=== PATIENT | male | born 1985 | race Caucasian/White ===

== ENCOUNTER 2018-05-14 14:27 | Inpatient (IN) | payer OTHER ==
[2018-05-14 14:53] VITALS: BMI 28.8
--- NOTE | 2018-05-14 17:55 | HP ---
"CIWA Score Nausea/Vomitin-Mild Nausea/No Vomiting Muscle Tremors: 4-Moderate,w/Arms Extend Anxiety: 1-Mildly Anxious Agitation: 1-Slight > Activity Paroxysmal Sweats: No Perspiration Orientation: 1-Uncertain about Date Tacttile Disturbances: 0-None Auditory Disturbances: 0-None Visual Disturbances: 0-None Headache: 2-Mild CIWA-Ar Total Score: 10 - Admission Criteria OASAS Guidelines: Admission for Medically Managed Detox: Requires at least one of the followin. CIWA greater than 12 2. Seizures within the past 24 hours 3. Delirium tremens within the past 24 hours 4. Hallucinations within the past 24 hours 5. Acute intervention needed for co occurring medical disorder 6. Acute intervention needed for co occurring psychiatric disorder 7. Severe withdrawal that cannot be handled at a lower level of care (continued vomiting, continued diarrhea, abnormal vital signs) requiring intravenous medication and/or fluids 8. Admission [facility] Chief Complaint: Here for benzo withdrawal. Allergies/Adverse Reactions: Allergies Allergy/AdvReac Type Severity Reaction Status Date / Time No Known Allergies Allergy Verified 05/14/18 17:22 History of Present Illness: Benzo use began at age 19. Hx blackouts r/t use. Last blackout about 5 months ago. Was getting prescribed Xanax. [facility] was in long-term treatment until April. Relapsed w/ benzo's 3 weeks. Marijuana use began at age 16. Heroin use began at age 21. On a MMTP but continues to use illicit opiates IV. [facility] does not share needles or works. Currently on [facility] ([facility]) OTP - . [facility] current Methadone dose is 40 mg PO Daily. Signed consent for release of information from [facility] to [facility] noted and placed in chart. Hx overdose -3 weeks ago. Nicotine use began at age 18. Was prescribed dextroamp-amphetamine but [facility] was not taking. Longest length of sobriety 1-2 days once out of treatment. Denies significant PMH/PSH. Search Terms: Yonatan Candelariohope, 1985 Search Date: 05/14/2018 05:38:32 PM The Drug Utilization Report below displays all of the controlled substance prescriptions, if any, that your patient has filled in the last twelve months. The information displayed on this report is compiled from pharmacy submissions to the Department, and accurately reflects the information as submitted by the pharmacies. This report was requested by: Charlene Sands | Reference #: [id number] Others' Prescriptions Patient Name: Yonatan Welsh Date: 1985 Address: [id number] [facility] [place] [id number] Sex: Male Rx Written Rx Dispensed Drug Quantity Days Supply Prescriber Name 03/01/2018 03/01/2018 alprazolam 2 mg tablet 60 30 ValbrunMason MD 03/01/2018 03/01/2018 dextroamp-amphetamin 30 mg tab 60 30 Valbrun, Mason Youngblood MD 01/25/2018 01/30/2018 dextroamp-amphetamin 30 mg tab 60 30 Valbrun, Mason Youngblood MD 01/25/2018 01/30/2018 alprazolam 2 mg tablet 60 30 Valbrun, Mason Youngblood MD 12/31/2017 12/31/2017 alprazolam 2 mg tablet 60 30 ValbrunMason MD 12/31/2017 12/31/2017 dextroamp-amphetamin 30 mg tab 60 30 Valbrun, Mason Youngblood MD 11/30/2017 11/30/2017 dextroamp-amphetamin 30 mg tab 60 30 Valbrun, Mason Youngblood MD 10/26/2017 10/26/2017 alprazolam 2 mg tablet 60 30 Valbrun, Mason Youngblood MD 10/26/2017 10/26/2017 dextroamp-amphetamin 30 mg tab 60 30 ValbrunMason MD 08/24/2017 08/25/2017 alprazolam 2 mg tablet 60 30 Valbrun, aMson Youngblood MD 08/24/2017 08/25/2017 dextroamp-amphetamin 30 mg tab 60 30 Valbrun, Mason Youngblood MD Exam Limitations: No Limitations - Ebola screening Have you traveled outside of the country in the last 21 days: No Have you had contact with anyone from an Ebola affected area: No Have you been sick,other than usual withdrawal symptoms: No Do you have a fever: No - Review of Systems Constitutional: No Symptoms Reported EENT: reports: No Symptoms Reported Respiratory: reports: No Symptoms reported Cardiac: reports: No Symptoms Reported GI: reports: Nausea : reports: No Symptoms Reported Musculoskeletal: reports: No Symptoms Reported Integumentary: reports: No Symptoms Reported Neuro: reports: Headache (Mild) Endocrine: reports: No Symptoms Reported Hematology: reports: No Symptoms Reported Psychiatric: reports: Judgement Intact, Orientated x3 (missed by 1 day), Agitated, Anxious, Depressed (Denies thoughts of harming self or others) Patient History - Patient Medical History Hx Anemia: No Hx Asthma: No Hx Chronic Obstructive Pulmonary Disease (COPD): No Hx Cancer: No Hx Cardiac Disorders: No Hx Congestive Heart Failure: No Hx Hypertension: No Hx Hypercholesterolemia: No Hx Pacemaker: No HX Cerebrovascular Accident: No Hx Seizures: No Hx Dementia: No Hx Diabetes: No Hx Gastrointestinal Disorders: No Hx Liver Disease: Yes Hx Genitourinary Disorders: No Hx Sexually Transmitted Disorders: No Hx Renal Disease (ESRD): No Hx Thyroid Disease: No Hx Human Immunodeficiency Virus (HIV): No (Neg - 2017) Hx Hepatitis C: Yes (Not treated) Hx Depression: Yes (Denies thoughts of harming self or others) Hx Suicide Attempt: No Hx Schizophrenia: No - Patient Surgical History Past Surgical History: No - PPD History Previous Implant?: Yes Documented Results: Negative w/o proof Implanted On Prior [facility] Admission?: No PPD to be Administered?: Yes - Smoking Cessation Smoking history: Current every day smoker Have you smoked in the past 12 months: Yes Aproximately how many cigarettes per day: 20 Hx Chewing Tobacco Use: No Initiated information on smoking cessation: Yes 'Breaking Loose' booklet given: 05/14/18 - Substance & Tx. History Hx Alcohol Use: No Hx Substance Use: Yes Substance Use Type: Heroin, Marijuana, Tranquilizers Hx Substance Use Treatment: Yes (detox, long-term rehab, Currently on a MMTP) - Substances Abused Alprazolam (Xanax) Route: Oral Frequency: Daily Amount used: 10mg Age of first use: 19 Date of Last Use: 05/13/18 Marijuana/Hashish Route: Smoking Frequency: 1-2 times per week Amount used: $10 Age of first use: 16 Date of Last Use: 05/13/18 Heroin Route: Injection Frequency: Daily Amount used: 5 bags Age of first use: 21 Date of Last Use: 05/13/18 Admission Physical Exam [facility] - Vital Signs Vital Signs: Vital Signs - 24 hr 05/14/18 14:50 Temperature 97.2 F L Pulse Rate 60 Respiratory 20 Rate Blood Pressure 122/74 - Physical General Appearance: Yes: Mild Distress, Tremorous, Anxious HEENTM: Yes: EOMI, Hearing grossly Normal, Normocephalic, Normal Voice, BETHANY, Pharynx Normal, Other (Saliva, thick whiteish. 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 No increased) Lymphatic: Yes: Within Normal Limits - Diagnostic (1) Nicotine dependence, uncomplicated Current Visit: Yes Status: Chronic Qualifiers: Nicotine product type: cigarettes Qualified Code(s): F17.210 - Nicotine dependence, cigarettes, uncomplicated (2) Dehydration Current Visit: Yes Status: Acute (3) Bradycardia Current Visit: Yes Status: Chronic (4) Cannabis abuse, uncomplicated Current Visit: Yes Status: Chronic (5) Sedative, hypnotic or anxiolytic dependence with withdrawal, uncomplicated Current Visit: Yes Status: Acute (6) Methadone maintenance therapy patient Current Visit: Yes Status: Chronic Cleared for Admission [facility] - Detox or Rehab [facility] Level of Care: Medically Supervised Detox Regimen/Protocol: Valium [facility] Breath Alcohol Content Breath Alcohol Content: 0 Urine Drug Screen - Results Drug Screen Negative: No Urine Drug Screen Results: THC-Marijuana, OPI-Opiates, BAR-Barbiturates, BZO- Benzodiazepines, MTD-Methadone, FEN-Fentanyl"
[2018-05-14] MEDS ORDERED: diazePAM 5 MG TABLET PO ONE (18:16)
[2018-05-14] MEDS ORDERED: MAGNESIUM CITRATE 300 ML BOTTLE PO PRN (18:16)
[2018-05-14] MEDS ORDERED: IBUPROFEN 400 MG TABLET (FP) PO PRN (18:16)
[2018-05-14] MEDS ORDERED: MAG HYDROX/AL HYDROX/SIMETH 30 ML UNIT-DOSE CUP PO PRN (18:16)
[2018-05-14] MEDS ORDERED: hydrOXYzine PAMOATE 50 MG CAPSULE (FP) PO PRN (18:16)
[2018-05-14] MEDS ORDERED: ACETAMINOPHEN 325 MG TABLET (FP) PO PRN (18:16)
[2018-05-14] MEDS ORDERED: MAGNESIUM HYDROX 2400MG/30ML ORAL SUSPENSION 30 ML CUP PO PRN (18:16)
[2018-05-14] MEDS ORDERED: MENTHOL/PHENOL 1 EACH UD MM PRN (18:16)
[2018-05-14] MEDS ORDERED: LOPERAMIDE HCL 2 MG CAPSULE PO PRN (18:16)
[2018-05-14] MEDS: diazePAM 5 MG TABLET PO SCH (22:39)
[2018-05-14] MEDS: THIAMINE HCL 100 MG TABLET (FP) PO SCH (22:39)
[2018-05-14] MEDS: NICOTINE POLACRILEX 2 MG GUM BC PRN (22:40)
[2018-05-15 00:49] LABS: URINE APPEARANCE SLCLOUDY; URINE BILIRUBIN NEGATIVE (<2.0 mg/dL); URINE COLOR AMBER; URINE GLUCOSE (UA) NEGATIVE (NEGATIVE); URINE KETONE NEGATIVE (NEGATIVE); URINE LEUK ESTERASE NEGATIVE (NEGATIVE); URINE NITRITE NEGATIVE (NEGATIVE); URINE PROTEIN 1+ (NEGATIVE)
[2018-05-15 02:28] LABS: CALCIUM OXALATE CRYSTALS FEW /hpf (NONE SEEN); EPI CELLS RARE /HPF (FEW); URINE HYALINE CAST 11 /lpf; URINE MUCUS MANY
[2018-05-15] MEDS: diazePAM 5 MG TABLET PO SCH ×3 (05:25→22:31)
[2018-05-15] MEDS: METHADONE HCL 40 MG DISPERSABLE TABLET PO SCH (08:40)
[2018-05-15] MEDS: PRENATAL VITAMINS W/ FOLIC ACID TABLET (FP) PO SCH (10:18)
[2018-05-15] MEDS: NICOTINE 21 MG/24 HOURS TOPICAL PATCH TD SCH (10:18)
[2018-05-15] MEDS: diazePAM 5 MG TABLET PO PRN ×2 (10:19→18:01)
[2018-05-15] MEDS: NICOTINE POLACRILEX 2 MG GUM BC PRN ×2 (10:19→14:05)
[2018-05-15 11:14] LABS: ALBUMIN 3.5 g/dl (3.4-5.0); ALK PHOS 52 U/L (45-117); ANION GAP 11 MMOL/L (8-16); BILIRUBIN,TOTAL 0.4 mg/dL (0.2-1); BLOOD UREA NITROGEN 15 mg/dL (7-18); CALCIUM 8.6 mg/dL (8.5-10.1); CHLORIDE 105 mmol/L (98-107); CO2 25 mmol/L (21-32); CREATININE 0.6 mg/dL (0.55-1.3); GLUCOSE,RANDOM 77 mg/dL (74-106); POTASSIUM 4.6 mmol/L (3.5-5.1); SGOT/AST 14 U/L (15-37); SGPT/ALT 19 U/L (13-61); SODIUM 140 mmol/L (136-145); TOT PROT 6.7 g/dl (6.4-8.2)
--- NOTE | 2018-05-15 11:14 | PN ---
S CIWA - CIWA Score Nausea/Vomitin-No Nausea/No Vomiting Muscle Tremors: 1-None Visible, but [place] Anxiety: 3 Agitation: 3 Paroxysmal Sweats: 2 Orientation: 0-Oriented Tacttile Disturbances: 0-None Auditory Disturbances: 0-None Visual Disturbances: 0-None Headache: 1-Very Mild CIWA-Ar Total Score: 10 [facility] Progress Note (SOAP) Subjective: PATIENT C/O HEADACHE, ANXIETY, SWEATING AND RESTLESSNESS. Objective: 05/15/18 11:11 Vital Signs Temperature 98.4 F 05/15/18 06:16 Pulse Rate 66 05/15/18 09:27 Respiratory Rate 18 05/15/18 09:27 Blood Pressure 110/70 05/15/18 09:27 O2 Sat by Pulse Oximetry (%) Laboratory Tests 05/14/18 05/15/18 23:16 07:17 WBC Cancelled Corrected WBC (auto) Cancelled RBC Cancelled Hgb Cancelled Hct Cancelled MCV Cancelled MCH Cancelled MCHC Cancelled RDW Cancelled Plt Count Cancelled MPV Cancelled Manual Slide Review Cancelled Platelet Comment Cancelled Urine Color Katia Urine Appearance Slcloudy Urine pH 5.0 Ur Specific [place] 1.036 H Urine Protein 1+ H Urine Glucose (UA) Negative Urine Ketones Negative Urine Blood Negative Urine Nitrite Negative Urine Bilirubin Negative Urine Urobilinogen 2.0 Ur Leukocyte Esterase Negative Urine WBC (Auto) 1 Urine RBC (Auto) None Ur Epithelial Cells Rare Calcium Oxalate Crystal Few Hyaline Casts 11 Urine Mucus Many PE: SKIN +FLUSHING, WARM AND MOIST CAR S1S2 RESP CTA BL EXT FULL ROM, +MILD TREMORS FELT ANXIOUS/RESTLESS ALERT AND ORIENTED X 3 Assessment: 05/15/18 11:13 WITHDRAWAL SX Plan: CONTINUE DETOX ENCOURAGE ORAL FLUIDS CONTINUE TO MONITOR CLINICALLY
--- NOTE | 2018-05-15 11:37 | EKG ---
Test Reason : Blood Pressure : / mmHG Vent. Rate : 051 BPM Atrial Rate : 051 BPM P-R Int : 138 ms QRS Dur : 100 ms QT Int : 426 ms P-R-T Axes : 042 068 057 degrees QTc Int : 392 ms SINUS BRADYCARDIA OTHERWISE NORMAL ECG NO PREVIOUS ECGS AVAILABLE Confirmed by LUCILA ORDONEZ, THOR ([id number]) on 05/15/2018 11:37:03 AM Referred By: Confirmed By:THOR GAYTAN MD
[2018-05-15] MEDS: THIAMINE HCL 100 MG TABLET (FP) PO SCH (22:31)
[2018-05-15] MEDS: MELATONIN 5 MG TABLETS PO PRN (22:31)
[2018-05-16] MEDS: diazePAM 5 MG TABLET PO PRN ×4 (03:26→18:17)
[2018-05-16] MEDS: METHADONE HCL 40 MG DISPERSABLE TABLET PO SCH (06:09)
[2018-05-16] MEDS: NICOTINE POLACRILEX 2 MG GUM BC PRN ×2 (08:10→19:00)
[2018-05-16] MEDS: NICOTINE 21 MG/24 HOURS TOPICAL PATCH TD SCH (10:09)
[2018-05-16] MEDS: PRENATAL VITAMINS W/ FOLIC ACID TABLET (FP) PO SCH (10:09)
[2018-05-16] MEDS: diazePAM 5 MG TABLET PO SCH ×2 (10:09→22:19)
[2018-05-16 10:23] LABS: BASO % 0.7 % (0-2.0); EOS % 1.6 % (0-4.5); HEMATOCRIT 39.8 % (35.4-49); HEMOGLOBIN 13.6 GM/dL (11.7-16.9); LYMPH % 45.2 % (8-40); MCHC 34.2 g/dl (32.0-35.9); MEAN CELL VOLUME 84.8 fl (80-96); MEAN PLT VOLUME 8.6 fl (7.5-11.1); MONO % 6.3 % (3.8-10.2); NEUT % 46.2 % (42.8-82.8); PLATELET COUNT 196 K/MM3 (134-434); RBC 4.69 M/mm3 (4.00-5.60); WHITE BLOOD COUNT 6.1 K/mm3 (4.0-10.0)
--- NOTE | 2018-05-16 10:30 | PN ---
S CIWA - CIWA Score Nausea/Vomitin-No Nausea/No Vomiting Muscle Tremors: None Anxiety: 3 Agitation: 2 Paroxysmal Sweats: No Perspiration Orientation: 0-Oriented Tacttile Disturbances: 0-None Auditory Disturbances: 0-None Visual Disturbances: 0-None Headache: 0-None Present CIWA-Ar Total Score: 5 BHS Progress Note (SOAP) Subjective: PATIENT C/O ANXIETY AND INTERMITTENT RESTLESSNESS. Objective: 05/16/18 10:28 Vital Signs Temperature 97.7 F 05/16/18 09:21 Pulse Rate 82 05/16/18 09:21 Respiratory Rate 18 05/16/18 09:21 Blood Pressure 110/52 L 05/16/18 09:21 O2 Sat by Pulse Oximetry (%) Laboratory Tests 05/14/18 05/15/18 05/15/18 23:16 07:17 07:17 WBC Cancelled Corrected WBC (auto) Cancelled RBC Cancelled Hgb Cancelled Hct Cancelled MCV Cancelled MCH Cancelled MCHC Cancelled RDW Cancelled Plt Count Cancelled MPV Cancelled Absolute Neuts (auto) Neutrophils % Lymphocytes % Monocytes % Eosinophils % Basophils % Nucleated RBC % Manual Slide Review Cancelled Platelet Comment Cancelled Sodium 140 Potassium 4.6 Chloride 105 Carbon Dioxide 25 Anion Gap 11 BUN 15 Creatinine 0.6 Creat Clearance w eGFR > 60 Random Glucose 77 Calcium 8.6 Total Bilirubin 0.4 AST 14 L ALT 19 Alkaline Phosphatase 52 Total Protein 6.7 Albumin 3.5 Urine Color Katia Urine Appearance Slcloudy Urine pH 5.0 Ur Specific [place] 1.036 H Urine Protein 1+ H Urine Glucose (UA) Negative Urine Ketones Negative Urine Blood Negative Urine Nitrite Negative Urine Bilirubin Negative Urine Urobilinogen 2.0 Ur Leukocyte Esterase Negative Urine WBC (Auto) 1 Urine RBC (Auto) None Ur Epithelial Cells Rare Calcium Oxalate Crystal Few Hyaline Casts 11 Urine Mucus Many RPR Titer 05/15/18 05/16/18 07:17 07:00 WBC 6.1 Corrected WBC (auto) RBC 4.69 Hgb 13.6 Hct 39.8 MCV 84.8 MCH 29.0 MCHC 34.2 RDW 13.0 Plt Count 196 MPV 8.6 Absolute Neuts (auto) 2.8 Neutrophils % 46.2 Lymphocytes % 45.2 H Monocytes % 6.3 Eosinophils % 1.6 Basophils % 0.7 Nucleated RBC % 0 Manual Slide Review Platelet Comment Sodium Potassium Chloride Carbon Dioxide Anion Gap BUN Creatinine Creat Clearance w eGFR Random Glucose Calcium Total Bilirubin AST ALT Alkaline Phosphatase Total Protein Albumin Urine Color Urine Appearance Urine pH Ur Specific [place] Urine Protein Urine Glucose (UA) Urine Ketones Urine Blood Urine Nitrite Urine Bilirubin Urine Urobilinogen Ur Leukocyte Esterase Urine WBC (Auto) Urine RBC (Auto) Ur Epithelial Cells Calcium Oxalate Crystal Hyaline Casts Urine Mucus RPR Titer Nonreactive PE: ALERT AND ORIENTED X 3 SKIN WARM AND DRY AMB AD ENOC EXT FULL ROM, NO TREMORS Assessment: 05/16/18 10:29 WITHDRAWAL SX Plan: CONTINUE DETOX REGIMEN ENCOURAGE ORAL FLUIDS CONTINUE TO MONITOR CLINICALLY
[2018-05-16] MEDS: THIAMINE HCL 100 MG TABLET (FP) PO SCH (22:19)
[2018-05-16] MEDS: MELATONIN 5 MG TABLETS PO PRN (22:21)
[2018-05-17] MEDS: METHADONE HCL 40 MG DISPERSABLE TABLET PO SCH (07:23)
[2018-05-17] MEDS: PRENATAL VITAMINS W/ FOLIC ACID TABLET (FP) PO SCH (10:25)
[2018-05-17] MEDS: diazePAM 5 MG TABLET PO SCH ×2 (10:25→22:33)
[2018-05-17] MEDS: NICOTINE 21 MG/24 HOURS TOPICAL PATCH TD SCH (10:25)
[2018-05-17] MEDS: NICOTINE POLACRILEX 2 MG GUM BC PRN ×4 (10:28→19:08)
--- NOTE | 2018-05-17 11:41 | PN ---
[facility] Progress Note Note: PATIENT CONTINUES WITH DETOX REGIMEN. STATES HE FEELS BETTER. C/O INTERRUPTED SLEEP. Vital Signs Temperature 96.8 F L 05/17/18 09:42 Pulse Rate 30 L 05/17/18 09:42 Respiratory Rate 18 05/17/18 09:42 Blood Pressure 106/68 05/17/18 09:42 O2 Sat by Pulse Oximetry (%) Laboratory Tests 05/14/18 05/15/18 05/15/18 23:16 07:17 07:17 WBC Cancelled Corrected WBC (auto) Cancelled RBC Cancelled Hgb Cancelled Hct Cancelled MCV Cancelled MCH Cancelled MCHC Cancelled RDW Cancelled Plt Count Cancelled MPV Cancelled Absolute Neuts (auto) Neutrophils % Lymphocytes % Monocytes % Eosinophils % Basophils % Nucleated RBC % Manual Slide Review Cancelled Platelet Comment Cancelled Sodium 140 Potassium 4.6 Chloride 105 Carbon Dioxide 25 Anion Gap 11 BUN 15 Creatinine 0.6 Creat Clearance w eGFR > 60 Random Glucose 77 Calcium 8.6 Total Bilirubin 0.4 AST 14 L ALT 19 Alkaline Phosphatase 52 Total Protein 6.7 Albumin 3.5 Urine Color Katia Urine Appearance Slcloudy Urine pH 5.0 Ur Specific [place] 1.036 H Urine Protein 1+ H Urine Glucose (UA) Negative Urine Ketones Negative Urine Blood Negative Urine Nitrite Negative Urine Bilirubin Negative Urine Urobilinogen 2.0 Ur Leukocyte Esterase Negative Urine WBC (Auto) 1 Urine RBC (Auto) None Ur Epithelial Cells Rare Calcium Oxalate Crystal Few Hyaline Casts 11 Urine Mucus Many RPR Titer 05/15/18 05/16/18 07:17 07:00 WBC 6.1 Corrected WBC (auto) RBC 4.69 Hgb 13.6 Hct 39.8 MCV 84.8 MCH 29.0 MCHC 34.2 RDW 13.0 Plt Count 196 MPV 8.6 Absolute Neuts (auto) 2.8 Neutrophils % 46.2 Lymphocytes % 45.2 H Monocytes % 6.3 Eosinophils % 1.6 Basophils % 0.7 Nucleated RBC % 0 Manual Slide Review Platelet Comment Sodium Potassium Chloride Carbon Dioxide Anion Gap BUN Creatinine Creat Clearance w eGFR Random Glucose Calcium Total Bilirubin AST ALT Alkaline Phosphatase Total Protein Albumin Urine Color Urine Appearance Urine pH Ur Specific [place] Urine Protein Urine Glucose (UA) Urine Ketones Urine Blood Urine Nitrite Urine Bilirubin Urine Urobilinogen Ur Leukocyte Esterase Urine WBC (Auto) Urine RBC (Auto) Ur Epithelial Cells Calcium Oxalate Crystal Hyaline Casts Urine Mucus RPR Titer Nonreactive PE: ALERT AND ORIENTED X 3 SKIN WARM AND DRY EXT FULL ROM, NO TREMORS AMB AD ENOC A/P WITHDRAWAL SX CONTINUE DETOX REGIMEN ENCOURAGE ORAL FLUIDS CONTINUE TO MONITOR CLINICALLY
[2018-05-17] MEDS: diazePAM 5 MG TABLET PO PRN ×2 (12:22→16:57)
--- NOTE | 2018-05-17 16:21 | PN ---
[facility] Progress Note Note: As per Mr. Kellymy, counselor, patient accepted to [facility] rehab on Sunday. Patient's discharge cancelled for tomorrow as patient at high risk for relapse. Patient will be discharged on Sunday to [facility] rehab.
[2018-05-17] MEDS: THIAMINE HCL 100 MG TABLET (FP) PO SCH (22:33)
[2018-05-17] MEDS: MELATONIN 5 MG TABLETS PO PRN (22:33)
[2018-05-18] MEDS: METHADONE HCL 40 MG DISPERSABLE TABLET PO SCH (05:43)
[2018-05-18 06:14] VITALS: BP 117/78; PULSE 56; TEMP 97.7
[2018-05-18] MEDS ORDERED: diazePAM 5 MG TABLET PO SCH (10:00)
--- NOTE | 2018-05-18 11:20 | DS ---
[facility] Detox Discharge Summary Admission Date: 05/14/18 Discharge Date: 05/18/18 - History Present History: Sedative Dependence, MMTP - Physical Exam Results Vital Signs: Vital Signs Temperature 97.7 F 05/18/18 06:13 Pulse Rate 56 L 05/18/18 06:13 Respiratory Rate 18 05/18/18 06:13 Blood Pressure 117/78 05/18/18 06:13 O2 Sat by Pulse Oximetry (%) Pertinent Admission Physical Exam Findings: PATIENT COMPLETED DETOX WITHOUT ADVERSE EVENT. PATIENT D/C CLINICALLY STABLE, DENIES SI/HI. PATIENT ENCOURAGED TO ATTEND GROUP MEETINGS AND REHAB TO PREVENT RELAPSE AND TO SEEK MEDICAL ATTENTION IF WITHDRAWAL SYMPTOMS OCCUR. PATIENT TO FOLLOW UP WITH M[facility] TODAY. D/C INSTRUCTIONS GIVEN TO PATIENT BY STAFF. - Treatment Hospital Course: Detox Protocol Followed, Detoxed Safely, Responded well, Discharged Condition Good, Rehab Referral Accepted Patient has Accepted a Rehab Referral to: TO FOLLOW UP WITH [facility] AND [facility] ON 05/20/18 - Medication Discharge Medications: Ambulatory Orders NK [No Known Home Medication] 05/14/18 - Diagnosis (1) Sedative, hypnotic or anxiolytic dependence with withdrawal, uncomplicated Status: Resolved - AMA Did Patient Leave Against Medical Advice: No
== END 2018-05-18 06:25 | disposition home or self-care (01) | DRG 773 ==
LOC: YASAS 14:27 → Y3N 19:14
PROC: HZ2ZZZZ Detoxification Services for Substance Abuse Treatment (ICD-10-PCS; principal; 2018-05-14)
DX: F13.230 Sedative, hypnotic or anxiolytic dependence with withdrawal, uncomplicated (principal); F11.20 Opioid dependence, uncomplicated; F12.10 Cannabis abuse, uncomplicated; F17.210 Nicotine dependence, cigarettes, uncomplicated; F32.9 Major depressive disorder, single episode, unspecified; E86.0 Dehydration; R00.1 Bradycardia, unspecified; B18.2 Chronic viral hepatitis C
CPT/HCPCS: 36415; 80053; 81003; 81015; 85025; 86593; 93005; 93010